=== PATIENT | female | born 1985 | race Caucasian/White ===

== ENCOUNTER 2018-10-23 10:52 | Outpatient (CLI) | payer OTHER ==
--- NOTE | 2018-10-23 12:43 | CT ---
CT RIGHT SHOULDER WITHOUT CONTRAST: HISTORY: Right clavicular fracture. COMPARISON: None. FINDINGS: Lungs are clear. Thyroid is unremarkable. No cervical adenopathy. Visualized thoracic spine is normal as well as the right side of the ribs. 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 There is absolutely no osseous union between the proximal and di stal fragments, although there is hypertrophic bone formation on either side of the fracture. Large soft tissue and bone callus which is not bridging. There is a 4 mm gap between the proximal and dist al fragments. Sternoclavicular alignment is normal. Glenohumeral alignment is normal. 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 Absolutely no bridging bone. POS: [facility]
== END 2018-10-23 10:53 | disposition home or self-care (01) ==
LOC: BICCT 10:52
PROVIDERS: ATTEND Orthopaedic Surgery
DX: S42.024A Nondisplaced fracture of shaft of right clavicle, initial encounter for closed fracture (principal); S42.001K Fracture of unspecified part of right clavicle, subsequent encounter for fracture with nonunion; M25.711 Osteophyte, right shoulder